=== PATIENT | female | born 1985 | race Asian ===

== ENCOUNTER 2018-09-09 06:51 | Outpatient (CLI) | payer BC ==
--- NOTE | 2018-09-09 08:20 | ULT ---
ULTRASOUND ABDOMEN COMPLETE HISTORY: Abdominal pain. TECHNIQUE: Elliott-scale ultrasound evaluation of the liver, gallbladder, spleen, pancreas, common bile duct, kidne ys, abdominal aorta, and inferior vena cava (IVC). FINDINGS: There is no focal hepatic lesion. The liver demonstrates mild increased echogenicity. No acute gall bladder pathology. The common duct is normal in caliber. No overt hydronephrosis of either kidney. The imaged portions of the pancreas are grossly unremarkable. Landeros's sign is reported as negative by the single end sewer. There is no ascites or additional significant pathology of the abdomen evident by sonographic evaluation. IMPRESSION: 1. No evidence of acute intraabdominal abnormality identified. 2. Slight increased echogenicity of the hepatic parenchyma. This can be seen in the setting of fatt y infiltration. Correlation with liver function enzymes may prove useful. POS: [facility]
== END 2018-09-09 06:52 | disposition home or self-care (01) ==
LOC: SCSULT 06:51
PROVIDERS: ATTEND Family Medicine
DX: R10.13 Epigastric pain (principal); R93.5 Abnormal findings on diagnostic imaging of other abdominal regions, including retroperitoneum
CPT/HCPCS: 76700